=== PATIENT | female | born 1985 | race Caucasian/White ===

== ENCOUNTER 2022-04-01 01:34 | Day surgery (SDC) | payer OTHER, SELFPAY ==
[2022-03-20 11:36] VITALS: BMI 38.7
--- NOTE | 2022-03-20 11:43 | PC.NURSE ---
Report to the Outpatient Waiting Room, entrance under the green pavilion located off [facility], at time 0600 on date 04/01/22. Planned Procedure Time: 0730. Time changes happen often and if your time is changed the preop area will call you the afternoon before. - You and your visitor will be asked to self-screen and do not enter if you have any COVID symptoms. - Only one visitor is requested with a max of two and NO children visitors are allowed at this time. - The patient visitor may be requested to leave or wait in car when not with patient due to distancing restrictions. - A mask is optional within the hospital. Patients may have clear liquids (water, carbonated beverages, clear teas, apple juice) until 3 hours prior to surgery with a maximum of 20 ounces. - No food from midnight until time of surgery Take the following medications with a SIP of water the morning of surgery: PROZAC Medications to discontinue per physician: N/A Date to take last dose: N/A Please no make-up, nail bulgarian, hairspray, perfume, deodorant, or body powder the day of surgery. No jewelry (including any body piercings) or valuables the day of surgery, leave them at home. Please take a shower or bath the night before, or the morning of, surgery with an antibacterial soap. Wear comfortable, loose fitting clothing. - Jewelry must be removed prior to entering the operating room. Rings and piercings that are not removed may be cut off. - The hospital will not accept responsibility for valuables. - Please leave all valuables, including medications, at home the day of surgery. If you are going home after surgery, a licensed car driver must drive you home. - NO public transportation without another adult if you receive anesthesia. - We recommend that an adult stay with you for 24 hours following discharge. - We also recommend that you do not drive, make important decision, drink alcoholic beverages, or take any drugs that were not prescribed by your health care provider for at least 24 hours after your discharge time. Follow any additional instructions given to you from your surgeon. If you or anyone in your household have experienced Covid symptoms in the past week, please notify your surgeon or the nurse liaison at the phone number below for possible testing. Telephone instructions given to PT - RAFAEL LU and asked if any additional questions and then verbalized understanding. Patient advised to call surgeon office or pre surgery nurse liaison [phone] if any additional questions.
--- NOTE | 2022-03-31 16:24 | PM.IMHP ---
H&P: HPI History of Present Illness Date/Time: 03/31/22 16:24 Chief Complaint: AUB Narrative: Oly is a 36yo [id number], who presented to clinic to discuss BC options due to AUB. She currently has a Nexplanon in place since 12/2018. She has been having some irregular cycles and had an US 1-2 yrs ago and was diagnosed w/ fibroids; unsure if it's fibroids or the nexplanon causing the AUB; nothing too heavy or painful. She has 4 children; 3 step and does not desire any future children. US showed 1.2cm anterior uterine fibroid adjacent to the endometrium. She would like a BTL. Review of Systems Review of Systems: All systems reviewed & are unremarkable except as noted in HPI and below PMFSH Past Medical History Medical History Anxiety Insertion of Nexplanon 12/31/2018 Family History Family History Other Diabetes mellitus Uterine cancer Social History Social History Smoking packs per day: 1 Smoking cigarettes per day: 20.0 Years smoked: 15 Smoking pack-years: 15.00 Smoking status: Former smoker Tobacco type: cigarettes Smoking end date: 05/05/20 Alcohol intake: current Alcohol use details: 2/MONTH Substance use: never Substance use type: does not use Living arrangements: with family Additional living arrangements comments: AND CHILDREN Additional occupation/education comments: [employer] Gender identity (if verbalized by the patient): Female Sexual Orientation (if Verbalized by the Patient): Straight or Heterosexual Spiritual care concerns: No Meds Home Medications and Allergies Home Medications Medication Instructions Recorded Confirmed Type fluoxetine 40 mg capsule 40 mg PO DAILY 03/20/22 03/20/22 History Allergies Allergy/AdvReac Type Severity Reaction Status Date / Time No Known Allergies Allergy Unverified 03/20/22 11:35 Exam Const: General: cooperative, comfortable, no acute distress and obese Resp: Effort & Inspection: normal respiratory effort Cardio: Rate: regular rate GI: Inspection: normal to inspection GI Palp: No abdominal tenderness and Yes Soft to palpation : Other: deferred to OR Skin: General skin exam: normal color Neuro: General: patient oriented x3 Extrem: General: normal to inspection Psych: Appearance: grossly normal Affect: normal affect Attitude: cooperative Assessment and Plan Assessment and plan (1) Abnormal uterine bleeding (AUB): Code(s): N93.9 - Abnormal uterine and vaginal bleeding, unspecified Status: Acute (2) Encounter for sterilization: Code(s): Z30.2 - Encounter for sterilization Status: Acute (3) Nexplanon in place: Code(s): Z97.5 - Presence of (intrauterine) contraceptive device Status: Acute Plan - Proceed with hysteroscopy, D&C, laparoscopic bilateral tubal ligation, nexplanon removal and possible hysteroscopy myomectomy - Risks and benefits explained in detail
[2022-04-01] VITALS (9 sets, daily range): BP systolic 113–148; BP diastolic 75–105; PULSE 65–92; RESP 16–20; TEMP 36.1–36.3; O2SAT 96–100
[2022-04-01] MEDS: ACETAMINOPHEN 500 MG TABLET 1000 MG PO (06:22)
[2022-04-01] MEDS: KETOROLAC 15 MG/ML VIAL (*BKC) IV PUSH (06:37)
--- NOTE | 2022-04-01 06:52 | WPDANESEPPF ---
Anes - Initial Pre Proc Eval Procedure: Operation Date: 04/01/22 07:30 Proposed Procedures p Hysteroscopy Dilation and Curettage with Myomectomy - Emily Payan MD s Laparoscopic Bilateral Tubal Ligation with Removal of Nexplanon Implant - Emily Payan MD Date/Time: 04/01/22 06:52 Surgeon: Emily Payan MD Pre Op Diagnosis: Endometrial Hyperplasia, Desires Sterilization Patient Data Age: 36 Gender: F Height: 1.5 m Weight: 90.8 kg Last Vital Signs Temp 36.1 C L 04/01/22 06:03 Pulse 78 04/01/22 06:03 Resp 16 04/01/22 06:03 BP 129/80 04/01/22 06:03 Pulse Ox 100 04/01/22 06:03 O2 Del Method Room Air 04/01/22 06:03 Allergies Allergy/AdvReac Type Severity Reaction Status Date / Time No Known Allergies Allergy Unverified 04/01/22 06:17 Home Medications Medication Instructions Recorded Confirmed Type fluoxetine 40 mg capsule 40 mg PO DAILY 03/20/22 04/01/22 History Patient hx anesthesia problems: none Family hx anesthesia problems: none Results Review: All pre-operative results and documents have been reviewed as part of the pre-operative evaluation. FOR[facility]LY [facility], [facility] Past Medical History Medical History Anxiety Insertion of Nexplanon 12/31/2018 Family History Family History Other Diabetes mellitus Uterine cancer Social History Social History Smoking packs per day: 1 Smoking cigarettes per day: 20.0 Years smoked: 15 Smoking pack-years: 15.00 Smoking status: Former smoker Tobacco type: cigarettes Smoking end date: 05/05/20 Alcohol intake: current Alcohol use details: 2/MONTH Substance use: never Substance use type: does not use Living arrangements: with family Additional living arrangements comments: AND CHILDREN Additional occupation/education comments: [employer] Gender identity (if verbalized by the patient): Female Sexual Orientation (if Verbalized by the Patient): Straight or Heterosexual Spiritual care concerns: No Anes - Eval Final PreProcedure Day of Procedure 11/28/22 06:52 Patient weight: morbidly obese Heart: regular rate and rhythm Lungs: clear to auscultation Airway: Mallampati scale class II Neurological: alert and oriented Last oral intake: >/= 8 hours ASA classification: III Emergent: no Anesthetic plan: proceed Anesthesia type and monitoring: general ETT and standard monitoring Results Review: All pre-operative results and documents have been reviewed as part of the pre-operative evaluation. Informed Consent: The patient's anesthetic plan and its attendant risks and benefits were discussed with the patient/family/POA. Questions were solicited and answers provided to the satisfaction of the patient/family/POA.
--- NOTE | 2022-04-01 06:55 | WPDHPUPDATE1 ---
History and Physical Update Update Date/Time: 04/01/22 06:55 History and Physical has been reviewed, including an updated exam of the patient. There are NO changes in the patient's condition. Risks, benefits, and alternatives have been discussed and questions answered. Patient agrees to proceed with procedure.
[2022-04-01] MEDS: LACTATED RINGERS 1,000 ML 30 ML IV CONT ×2 (07:10→09:07)
[2022-04-01] MEDS: BUPIVACAINE HCL 0.25% PF 30 ML VIAL 20 ML INFILTRATE (07:20)
--- NOTE | 2022-04-01 08:33 | W.PM.PROC2 ---
Procedure Note - Detailed Date of Procedure 04/01/22 Pre-op Diagnosis Thickened endometrium, Desires Sterilization Post-op Diagnosis Same Procedure Performed Laparoscopic bilateral tubal ligation, hysteroscopy, dilation and curettage, and removal of Nexplanon device. Surgeon Emily Payan MD Anesthesia General Findings Uterus sounded to 9.5cm, normal appearing cervix, bilateral tubal ostia visualized, thickened endometrium throughout; no fibroid visualized protruding into the cavity. Normal uterus and ovaries. R tube with paratubal cyst (removed with tubal segment). Nexplanon removed from the left upper extremity and discarded (showed to OR staff before discarding). Good hemostasis at end of case. Description of Procedure Oly was taken to the operating room where she was placed under general endotracheal anesthesia without complications. She was then prepped (abdomen and vagina) and draped in the usual sterile fashion in the dorsal lithotomy position with her legs in low Eleuterio stirrups and her arms tucked at her side with a strap over her chest. A time-out was performed and no preoperative antibiotics were indicated. My attention was turned down below where her bladder was drained via straight catheterization. A bivalve speculum was then placed within the vagina where the cervix was easily identified. The anterior lip of the cervix was grasped with a single-tooth tenaculum, the uterus was sounded, and a Tamiko uterine manipulator was placed without complications. My gloves were changed and my attention was turned to her abdomen. An umbilical incision was made, and a 5 mm trocar was placed under direct visualization without complications. Once intra-abdominal placement was confirmed the abdomen was insufflated with carbon dioxide gas. She was then placed in Trendelenburg and two additional 5 mm ports were placed in the left and right lower quadrants under direct visualization without complications. The above findings were noted. The left fallopian tube was then elevated and a tubal segment was removed using the Ligasure device without complication. The tubal segment was then removed from the abdomen. The same procedure was then performed on the right side without any complications. Good hemostasis was noted. All instruments were removed from the abdomen. The insufflation was released and the trocars were removed. The 3 laparoscopic incision sites were reapproximated using 4-0 Monocryl and covered with Dermabond. The incisions were then infiltrated using 0.25% Marcaine. The uterine manipulator was removed. A bivalve speculum was placed within the vagina where the cervix was easily identified. The anterior lip of the cervix was grasped with a single-tooth tenaculum. The cervix was then serially dilated to allow for the Aveta hysteroscope. The hysteroscope was advanced into the uterine cavity with the above findings noted. A curettage was then performed until a good uterine cry was felt throughout the uterus. Good hemostasis was noted. All instruments were removed from the vagina. My attention was turned to the patient's left arm which was then prepped with Betadine. The Nexplanon was easily palpated. A small incision was made at the distal end of the Nexplanon and the Nexplanon was removed using a Vandana clamp without complications. Pressure was applied to prevent bleeding. Steri-Strips were then placed over the incision. Sponge, lap, instrument, and needle counts were correct at the end of the procedure. Patient was awoken from general anesthesia and taken to recovery with plans of same-day discharge home. Estimated Blood Loss 10 IV Fluids 800 Urine Output 150 Pathology Yes (L & R tubal segements (sent separately), endometrial curettings) Complications No immediate complications Condition Stable Disposition Same day [facility] Billing Surgery - Charge Forward: Surgery Billing
[2022-04-01] MEDS: oxyCODONE HCL (*CRX) 5 MG TAB IR PO (10:06)
== END 2022-04-01 10:27 | disposition home or self-care (01) ==
PROVIDERS: PCP Physician Assistant; Visit Provider Obstetrics & Gynecology
PROC: 0U5B8ZZ Destruction of Endometrium, Via Natural or Artificial Opening Endoscopic (ICD-10-PCS; CPT 58563; principal; 2022-04-01 07:30)
PROC: (CPT 58671; 2022-04-01 07:30)
DX: N93.9 Abnormal uterine and vaginal bleeding, unspecified (principal); Z30.2 Encounter for sterilization; Z30.46 Encounter for surveillance of implantable subdermal contraceptive; N83.8 Other noninflammatory disorders of ovary, fallopian tube and broad ligament; F41.9 Anxiety disorder, unspecified; Z87.891 Personal history of nicotine dependence; E66.01 Morbid (severe) obesity due to excess calories; Z68.41 Body mass index [BMI] 40.0-44.9, adult
CPT/HCPCS: 11982; 58661; 58558; 88302; 88305; A9270; J1100; J1885; J2250; J2405; J2704; J2710; J3010; J7030; J7120

== ENCOUNTER 2022-05-31 09:03 | Emergency (ER) | payer OTHER, SELFPAY ==
[2022-05-31] VITALS (14 sets, daily range): BP systolic 119–141; BP diastolic 70–98; PULSE 82–100; RESP 16–24; TEMP 36.7; O2SAT 92–100
--- NOTE | ~2022-05-31 | US_ITS ---
EXAMINATION: US abdomen limited DATE: 05/31/2022 10:05 INDICATION: Abdominal pain TECHNIQUE: Multiple grayscale and Doppler ultrasound images of the abdomen were obtained. COMPARISON: None FINDINGS: The pancreatic head and body are normal in appearance. The pancreatic tail is not visualized. Liver has normal contour, with a smooth surface. There is increased parenchymal echogenicity and coarsened echotexture consistent with diffuse hepatic steatosis. No liver lesion identified. No intrahepatic b iliary duct dilation suspected. Portal venous flow was seen in the hepatopetal, normal direction and has normal Doppler waveform. The gallbladder is normal in appearance. There is no cholelithiasis. Th e common bile duct measures 3 mm, which is normal. Sonographic Jc sign was reported as negative b y the mat machine tender.Visualized portion of the right kidney demonstrates normal echogenicity and contour with no hydronephrosis. Visualized proximal inferior vena cava is normal. IMPRESSION: 1. Diffuse hepatic steatosis. Reviewed, dictated and finalized at location B. 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
--- NOTE | ~2022-05-31 | XR_ITS ---
Clinical Indication: Chest pain PA and lateral views of the chest: Comparison: None Findings: The lungs are clear, without evidence of focal consolidation or pleural effusion. Cardiome diastinal silhouette is within normal limits. Bones and soft tissues are unremarkable. Impression: Normal chest. Reviewed, dictated and finalized at location . [employer] Impression: Normal chest.
--- NOTE | ~2022-05-31 | CT_ITS ---
EXAMINATION: CT abdomen pelvis w con DATE: 05/31/2022 14:06 INDICATION: Abdominal pain. TECHNIQUE: Computed tomography (CT) of the abdomen and pelvis was performed with 100 mg Omnipaque 350 intravenous contrast. Automated exposure control and iterative reconstruction technique were employe d. The dose-length product was 1322.62 mGy-cm. COMPARISON: Ultrasound abdomen 05/31/2022 FINDINGS: The visualized portions of the lung bases are clear without pneumonia or pleural effusion. The heart size is normal. No pericardial effusion. There is diffuse hepatic steatosis. The spleen, ga llbladder, pancreas, adrenal glands, and kidneys are normal. There are no dilated loops of bowel. The re are no dilated loops of bowel. The appendix is normal. There are no pathologically enlarged lymph nodes. There is no free intraperitoneal fluid. There is a 1.9 x 0.6 cm cyst in the vagina on the righ t. There is mild thoracolumbar spondylosis. IMPRESSION: 1. 1.9 cm cyst in the vagina on the right, likely benign. Reviewed, dictated and finalized at location A. 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
--- NOTE | 2022-05-31 09:09 | ECG_ITS ---
Rate 95 [place] 173 QRSd 93 QT 354 QTc 445 --Brandon-- P 17 QRS 18 T 30 SINUS RHYTHM BASELINE ARTIFACT- I, III, AVL NORMAL ECG NO PREVIOUS ECG AVAILABLE FOR COMPARISON Electronically Signed On 06-03-2022 11:56:44 TOOL SUPERVISOR by Singh WHITLOCK
[2022-05-31] MEDS: SODIUM CHLORIDE 0.9% IV 1,000 ML 999 ML IV CONT (09:33)
[2022-05-31] MEDS: KETOROLAC 30 MG/ML VIAL (*BKC) IV PUSH (09:33)
[2022-05-31 09:34] LABS: Basophils Percent Auto 0.2 % (0.2-1.2); Eosinophils Percent Auto 0.1 % (0-4.4); Hematocrit 37.6 % (37.0-47.0); Hemoglobin 12.8 g/dL (12.0-15.0); Immature Granulocyte Absolute 0.04 K/mm3 (0.00-0.031); Immature Granulocyte Percent A 0.4 % (0-0.5); Lymphocytes Absolute Auto 1.68 K/mm3 (0.9-3.2); Mean Corpuscular Hemoglobin 31.4 pg (26-34); Mean Corpuscular Volume 92.2 fl (80-100); Mean Platelet Volume 9.6 fl (7.4-10.4); Monocytes Absolute Auto 0.9 K/mm3 (0.1-0.6); Monocytes Percent Auto 8.1 % (2.6-8.5); Neutrophils Absolute Auto 7.9 K/mm3 (1.3-6.7); Neutrophils Percent Auto 75.2 % (45.5-73.1); Platelet Count Result 234 k/mm3 (150-375); Red Blood Count 4.08 M/mm3 (4.2-5.4); Red Cell Distribution Width 12.3 % (11.5-14.5); White Blood Count 10.5 K/mm3 (4.5-10.0)
--- NOTE | 2022-05-31 09:34 | ED.CHESTPAIN ---
HPI - Chest Pain General Chief Complaint: Chest Pain Stated Complaint: nausea, weakness, headache, chest and back pain Time Seen by Provider: 05/31/22 09:15 Source: RN notes reviewed History of Present Illness HPI narrative: Patient presents emergency department from home for chest pain. Patient states that symptoms initially began last night she states that she was at work and began to feel ill states she felt tired as well as nauseous and generally weak she states that at that time she had gone to lunch and laid down and slept for an hour and woke up and felt mildly better but still continued to work states that she then began to feel nauseous again with pain in her lower mid chest and upper abdomen she states it is associate with nausea as well as the pain that was described as sharp and stabbing that radiated around to the back and into the right shoulder blade she states she had no episodes of vomiting she denies any fevers or chills shortness of breath or diarrhea. Patient states pain is increased with deep inspiration Related Data Home Medications Medication Instructions Recorded Confirmed fluoxetine 40 mg capsule 40 mg PO DAILY 03/20/22 04/01/22 Allergies Allergy/AdvReac Type Severity Reaction Status Date / Time iohexol Allergy Hives Verified 05/31/22 14:22 [From contrast - CT, X-RAY] Review of Systems Review of Systems: Gen.: Denies fevers or chills ENT: Denies congestion Respiratory: Denies shortness of breath or cough CV: Reports chest pain GI: Reports epigastric abdominal pain and nausea, denies emesis or diarrhea Musculoskeletal: Denies back pain or muscle pain Neuro: Denies numbness, tingling, weakness or focal weakness Skin: Denies rash Except as documented, all other systems reviewed and negative [facility] Past Medical History Medical History Anxiety Insertion of Nexplanon 12/31/2018 Surgical History Surgical History (Updated 04/16/22 @ 11:03 by Cathy Romano MA) History of gynecologic surgery D&C mylemectomy, and Nexplanon removal Family History Family History Other Diabetes mellitus Uterine cancer Social History Social History Smoking packs per day: 1 Smoking cigarettes per day: 20.0 Years smoked: 15 Smoking pack-years: 15.00 Smoking status: Former smoker Tobacco type: cigarettes Smoking end date: 05/05/20 Alcohol intake: current Alcohol use details: 2/MONTH Substance use: never Substance use type: does not use Living arrangements: with family Additional living arrangements comments: AND CHILDREN Occupation/Education: occupation Additional occupation/education comments: [employer] Gender identity (if verbalized by the patient): Female Sexual Orientation (if Verbalized by the Patient): Straight or Heterosexual Spiritual care concerns: No Exam Narrative: APPEARANCE: No acute distress, nontoxic, resting in bed HEENT: Normocephalic, atraumatic, OMM RESPIRATORY: No respiratory distress, clear to auscultation bilaterally with no rhonchi wheezing or rales CARDIOVASCULAR: RRR s murmur ABDOMINAL: Soft nondistended tender palpation epigastric and right upper quadrant no tenderness left upper quadrant, left lower quadrant and right lower quadrant no rebound or guarding MUSCULOSKELETAl: Moves all extremities. No clubbing, cyanosis or edema. NEURO: Awake and alert. Following commands, speech normal, no focal deficits SKIN:: Warm, dry. Normal Color PSYCHIATRIC: Normal affect/mood Course Course Emergency Course: Patient went for CT scan of the abdomen pelvis following return from CT scan patient has hives noted she was given Solu-Medrol Benadryl and Pepcid with resolution of hives And states she is feeling better this time Discussed with patient results of workup and diagnos
[2022-05-31 09:36] LABS: INR 1.1; Partial Thromboplastin Time 27.8 SECONDS (22.3-36.8); Prothrombin Time 13.3 Seconds (11.1-14.7)
[2022-05-31 09:38] LABS: Alanine Aminotransferase 31 U/L (6-35); Albumin Level 4.2 g/dL (3.5-5.1); Alkaline Phosphatase 72 U/L (38-126); Anion Gap 8 mmol/L (8-16); Aspartate Amino Transferase 28 U/L (14-36); Bilirubin,Total 0.6 mg/dL (0.2-1.3); Blood Urea Nitrogen 9 mg/dL (7-17); Calcium 8.6 mg/dL (8.4-10.2); Carbon Dioxide 24 mmol/L (22-30); Chloride 103 mmol/L (98-107); Estimated Glomerular Filt Rate > 60; Glucose 93 mg/dL (65-110); Lipase 49 U/L (23-300); Potassium 3.6 mmol/L (3.4-5.0); Sodium 135 mmol/L (137-145)
[2022-05-31 09:49] LABS: Troponin I < 0.012 ng/mL (0.000-0.034)
[2022-05-31 10:47] LABS: Influenza A QL RT-PCR Negative (Negative); Influenza B QL RT-PCR Negative (Negative); SARS-CoV-2 RNA PCR Negative
[2022-05-31 11:21] LABS: D Dimer 0.48 ug/mL (<0.48)
[2022-05-31 12:24] LABS: Troponin I < 0.012 ng/mL (0.000-0.034)
[2022-05-31] MEDS: methylPREDNISolone SOD SUCC 125 MG VIAL IV PUSH (14:12)
[2022-05-31] MEDS: FAMOTIDINE 20 MG/2 ML VIAL IV PUSH (14:13)
[2022-05-31] MEDS: diphenhydrAMINE HCl INJ 50 MG/ML VIAL 25 MG IV PUSH (14:13)
--- NOTE | 2022-05-31 14:15 | ECG_ITS ---
Measurements Intervals [place] Rate: 87 P: 35 OK: 191 QRS: 26 QRSD: 91 T: 28 QT: 365 QTc: 440 Interpretive Statements SINUS RHYTHM BASELINE ARTIFACT- I, III, AVR NORMAL ECG NO PREVIOUS ECG AVAILABLE FOR COMPARISON Electronically Signed On 05-31-2022 14:49:13 [facility] DIRECTOR by Singh Hernandez D.O COMPARED TO ECG 05/31/2022 09:14:32 NO SIGNIFICANT CHANGES MTDD
[2022-05-31 15:37] LABS: Troponin I < 0.012 ng/mL (0.000-0.034)
== END 2022-05-31 16:48 | disposition home or self-care (01) ==
PROVIDERS: Emergency Provider Emergency Medicine; PCP Physician Assistant
DX: R07.9 Chest pain, unspecified (principal); R10.13 Epigastric pain; L50.0 Allergic urticaria; T50.8X5A Adverse effect of diagnostic agents, initial encounter; N89.8 Other specified noninflammatory disorders of vagina; Z20.822 Contact with and (suspected) exposure to COVID-19; F41.9 Anxiety disorder, unspecified; Z87.891 Personal history of nicotine dependence; K76.0 Fatty (change of) liver, not elsewhere classified
CPT/HCPCS: 36415; 71046; 74177; 76705; 80053; 83690; 84484; 85025; 85380; 85610; 85730; 87636; 93005; 96361; 96374; 96375; 99284; A9270; J1200; J1885; J2930; J7030; Q9967

== ENCOUNTER 2023-06-18 09:16 | Outpatient (CLI) | payer OTHER, SELFPAY ==
[2023-06-18 09:38] LABS: Basophils Percent Auto 0.2 % (0.2-1.2); Eosinophils Absolute Auto 0.1 K/mm3 (0-0.3); Hematocrit 38.9 % (37.0-47.0); Hemoglobin 13.2 g/dL (12.0-15.0); Immature Granulocyte Absolute 0.01 K/mm3 (0.00-0.031); Immature Granulocyte Percent A 0.2 % (0-0.5); Lymphocytes Absolute Auto 1.81 K/mm3 (0.9-3.2); Lymphocytes Percent Auto 35.8 % (18.3-44.2); Mean Corpuscular HGB Conc 33.9 g/dl (32-36); Mean Corpuscular Hemoglobin 31.1 pg (26-34); Mean Corpuscular Volume 91.5 fl (80-100); Mean Platelet Volume 9.5 fl (7.4-10.4); Monocytes Absolute Auto 0.4 K/mm3 (0.1-0.6); Monocytes Percent Auto 7.3 % (2.6-8.5); Neutrophils Absolute Auto 2.8 K/mm3 (1.3-6.7); Neutrophils Percent Auto 54.5 % (45.5-73.1); Platelet Count Result 248 k/mm3 (150-375); Red Blood Count 4.25 M/mm3 (4.2-5.4); Red Cell Distribution Width 12.7 % (11.5-14.5); White Blood Count 5.1 K/mm3 (4.5-10.0)
[2023-06-18 10:01] LABS: Iron 78 ug/dL (37-170)
[2023-06-18 10:11] LABS: Percent Iron Saturation 23 % (20-50)
[2023-06-18 10:34] LABS: Thyroid Stimulating Hormone Reflex 0.553 uIU/mL (0.465-4.68)
[2023-06-21 12:07] LABS: Testosterone Total 12 ng/dL (2-45)
[2023-06-22 16:03] LABS: FSH 22.1 mIU/mL (***); Progesterone <0.2 ng/mL (***); Prolactin 12.9 ng/mL (***)
[2023-06-26 22:11] LABS: Estradiol, Ultrasensitive 34 pg/mL
== END 2023-06-18 09:17 | disposition home or self-care (01) ==
PROVIDERS: PCP Physician Assistant; Visit Provider Obstetrics & Gynecology
DX: N92.0 Excessive and frequent menstruation with regular cycle (principal)
CPT/HCPCS: 36415; 82670; 82728; 83001; 83540; 83550; 84144; 84146; 84403; 84443; 85025